=== PATIENT | male | born 1950 | race Caucasian/White ===

== ENCOUNTER 2019-10-11 12:26 | Emergency (ER) | payer MEDICARE ==
--- OUTSIDE RECORDS SUMMARY | 2019-10-11 12:33 | XMS REPORT | Continuity of Care Document ---
:1950 External Reference #:[id number] Author Name Jazlyn Sharp M.D. Address [address] [place] [address] Care Team Providers Name Role Phone Jazlyn Sharp M.D. 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 Onset: 07/21/2017 Gout Vincent Fuentes M.D. Onset: 07/21/2017 Essential hypertension Vincent Fuentes M.D. Onset: 07/21/2017 Peripheral vascular disease Jazlyn Sharp M.D. Onset: 04/19/2019 Impaired fasting glycaemia Jazlyn Sharp M.D. Onset: 05/08/2019 Social History Type Date Description Comments Sex Unknown Tobacco Use Start: 08/01/68 End: Former Cigarette Smoker 08/01/72 ETOH Use Occasionally consumes wine Tobacco Use Start: Unknown Nonsmoker Smoking Status Reviewed: 04/19/19 Nonsmoker Exercise Walks daily bike, and gym Type/Frequency Allergies, Adverse Reactions, Alerts Active Allergies Reaction Severity Comments Date NSAIDS severe swelling/angioedema 07/21/2017 Allopurinol rash 07/21/2017 Medications Active Medications SIG Qnty Indications Ordering Provider Date Uloric 1/4 tablet by 90tabs Jazlyn Sharp M.D. 80mg Tablets mouth every day Ramipril 1 by mouth every 90caps Jazlyn Sharp M.D. 10mg Capsules day Simvastatin 1/2 tablet by 90tabs Jazlyn Sharp M.D. 80mg mouth every day Tablets Immunizations CPT Code Status Date Vaccine Lot # [id number] Given 05/17/2019 High-Dose, Influenza Virus Vacccine-fluzone 65 and older [id number] Given 06/09/2018 High-Dose, Influenza Virus Vacccine-fluzone 65 and [id number] older Vital Signs Date Vital Result Comment 10/01/2019 9:08am BP Systolic 138 mmHg BP Diastolic 78 mmHg Heart Rate 66 /min Body Temperature 98.2 F Respiratory Rate 18 /min Height 71.5 inches 5'11.50" Weight 166.00 lb BMI (Body Mass Index) 22.8 kg/m2 04/19/2019 11:02am BP Systolic 124 mmHg BP Diastolic 76 mmHg Heart Rate 60 /min Body Temperature 97.9 F Respiratory Rate 16 /min Height 71.5 inches 5'11.50" Weight 172.00 lb BMI (Body Mass Index) 23.7 kg/m2 Results Test Acquired Date Facility Test Result H/L Range Note Lipid Profile 09/12/2019 [facility]) Cholesterol 156 mg/dL 120- 200 Triglycerides 83 mg/dL 30-200 HDL Cholesterol 47 mg/dL 30-70 LDL (Calculated) 92 CALC 0-129 VLDL Cholesterol 17 mg/dL 0-50 HDL Risk Factor 3.3 CALC 0.0-4.4 Comprehensive Metabolic 09/12/2019 [facility]) Sodium 138 mEq/L 134-149 Prof Potassium 4.4 mEq/L 3.6-5.5 Chloride 101 mEq/L 94-112 Carbon Dioxide 28 mEq/L 21-32 Glucose 107 mg/dL High 70-105 BUN 17 mg/dL 6-26 Creatinine 1.0 mg/dL 0.6-1.4 BUN/Creat Ratio 17.0 CALC 8.0-36.0 Calcium 10.4 mg/dL 8.9-10.6 Total Protein 7.2 g/dL 6.4-8.3 Albumin 4.6 g/dL 3.8-5.5 Globulin 2.6 g/dL 2.0-4.8 A/G Ratio 1.8 CALC 0.6-2.3 Alk. Phosphatase 59 U/L 22-95 Alt (SGPT) 19 U/L 7-35 Ast (Sgot) 19 U/L 5-34 Total Bilirubin 0.6 mg/dL 0.2-1.3 GFR Non- >60 ml/min/1.73m^ >=60 GFR >60 ml/min/1.73m^ >=60 Laboratory test 09/12/2019 [facility] Hemoglobin A1c 5.3 % % 4.1- 5.7 finding (607)- - ([facility]) Lipid Profile 05/04/2019 [facility](a) Cholesterol 189 mg/dL 120- 200 Triglycerides 122 mg/dL 30-200 HDL Cholesterol 46 mg/dL 30-70 LDL (Calculated) 119 CALC 0-129 VLDL Cholesterol 24 mg/dL 0-50 HDL Risk Factor 4.1 CALC 0.0-4.4 Comprehensive Metabolic 05/04/2019 [facility] [place]) Sodium 138 mEq/L 134-149 Prof Potassium 4.0 mEq/L 3.6-5.5 Chloride 107 mEq/L 94-112 Carbon Dioxide 27 mEq/L 21-32 Glucose 123 mg/dL High 70-105 BUN 16 mg/dL 6-26 Creatinine 1.0 mg/dL 0.6-1.4 BUN/Creat Ratio 16.0 CALC 8.0-36.0 Calcium 9.5 mg/dL 8.6-10.2 Total Protein 7.3 g/dL 6.4-8.3 Albumin 4.8 g/dL 3.8-5.5 Globulin 2.5 g/dL 2.0-4.8 A/G Ratio 1.9 CALC 0.6-2.3 Alk. Phosphatase 62 U/L 22-95 Alt (SGPT) 42 U/L High 7-35 Ast (Sgot) 27 U/L 5-34 Total Bilirubin 0.6 mg/dL 0.2-1.3 GFR Non- >60 ml/min/1.73m^ >=60 GFR >60 ml/min/1.73m^ >=60 Laboratory test finding 05/04/2019 [facility] [place]) TSH 2.73 mIU/L 0.50-6.00 Free T4 0.95 ng/dL 0.75-1.54 Uric Acid 5.9 mg/dL 2.5-9.2 CBC Electronic a 05/04/2019 [facility](a) WBC 5.8 x10^3/UL 4.0- 10.0 RBC 4.84 x10^6/UL 3.93-6.00 HGB 14.5 g/dL 12.0-17.0 HCT 44 % 35-50 MCV 89.9 fL 80.0-95.0 MCH 30.0 pg 25.6-32.2 MCHC 33.3 g/dL 32.2-36.0 RDW-CV 12.5 % 11.6-14.4 PLT 240 x10^3/UL 163-400 MPV 10.2 fL 9.4-12.4 Ronnie# 2.94 x10^3/UL 1.56-6.13 Lymph# 2.06 x10^3/UL 1.18-3.74 [place]# 0.63 x10^3/UL 0.24-0.82 Eos # 0.1 x10^3/UL 0.0-0.5 Baso # 0.08 x10^3/UL 0.01-0.08 Ronnie% 50.4 % 34.0-70.0 Lymph % 35.3 % 20.0-52.0 [place]% 10.8 % 5.0-12.0 Eos% 1.9 % 0.7-7.0 Baso% 1.4 % High 0.1-1.2 Procedures Date Code Description Status 08/01/2011 04260199 Colonoscopy Completed Medical Devices Description No Information Available Encounters Type Date Location Provider Dx Diagnosis Office Visit 04/19/2019 Main Office Jazlyn Sharp M.D. 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 examination without abnormal findings 10/01/2019 I10 Essential (primary) hypertension Jazlyn Sharp M.D. 10/01/2019 E78.5 Hyperlipidemia, unspecified Jazlyn Sharp M.D. 10/01/2019 R73.01 Impaired fasting glucose Jazlyn Sharp M.D. 10/01/2019 H91.93 Unspecified hearing loss, bilateral Jazlyn Sharp M.D. 09/12/2019 E78.2 Mixed hyperlipidemia Vincent Fuentes M.D. 09/12/2019 R73.09 Other abnormal glucose Vincent Fuentes M.D. 09/11/2019 E78.2 Mixed hyperlipidemia Vincent Fuentes M.D. 05/04/2019 E78.5 Hyperlipidemia, unspecified Jazlyn Sharp M.D. 05/04/2019 I10 Essential (primary) hypertension Jazlyn Sharp M.D. 05/04/2019 M10.9 Gout, unspecified Jazlyn Sharp M.D. 04/19/2019 I73.9 Peripheral vascular disease, unspecified Jazlyn Sharp M.D. 04/19/2019 M10.9 Gout, unspecified Jazlyn Sharp M.D. 04/19/2019 E78.5 Hyperlipidemia, unspecified Jazlyn Sharp M.D. 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 Plan of Treatment 10/01/2019 - Jazlyn Sharp M.D.Z00.00 Encounter for general adult medical examination without abnormal findingsComments:Encourage an active and healthy lifestyle with proper eating habits including fruits, vegetables, 6-8 glasses of water a day and monitoring portion size. Recommend 30 minutes of daily physical activityincluding walking, aerobic exercise, sports, yoga or dance. Any activity is better than no activity.Recommend routine eye and dental exams. Next physical is due in 1-2 years. Recommend annual influenza [id number] Essential (primary) hypertensionNew Labs:Comp Metabolic-[facility], Ordered : 10/01/19Lipid Panel-[facility], Ordered: 10/01/19Comments:The patient will continue to monitor blood pressure and let me know the blood pressure results if there are readings persistently above 140/90. Goal blood pressure is less than 130/80. Recommend low salt/cardiac diet such as the Mediterranean diet and routine exercise at least 30 minutes a day.E78.5 Hyperlipidemia, unspecifiedComments:Goal LDL is <100, possible <70 ,HDL >40, Triglycerides <200 peripheral vascular disease in left thigh; can't tolerate asa with allergyincrease simvastatin to 40mg very other dayR73.01 Impaired fasting glucoseNew Labs:Comp Metabolic-[facility], Ordered: Hemoglobin A1c ([facility]), Ordered: 10/01/19Comments:A fasting blood sugar level from 100 to 125 mg/dL is considered prediabetes. If it's 126 mg/dL or higher on two separate tests, you have diabetes. A1c> 6.5 is also diagnostic of diabetes.H91.93 Unspecified hearing loss, bilateralComments:refer for hearing evaluationAllComments:Medication Management Patient Understands medications he' s taking? Yes No Are there Barriersto Adherence? Yes No Has the patient been asked about herbal supplements and therapies, and OTC meds? Yes No Functional Status Description No Information Available Mental Status Description No Information Available Referrals Refer to Reason for Referral Status Appt Date [facility] hearing eval jw Sent [address] [place] [address] [phone]
[2019-10-11 13:29] VITALS: BP 141/94
[2019-10-11 13:56] LABS: Influenza A Molecular Negative (Negative); Influenza B Molecular Negative (Negative)
--- NOTE | 2019-10-11 15:57 | UC ---
Throat Pain/Nasal Cb HPI - HPI Summary HPI Summary: 69-year-old male comes in with a chief complaint of muscle aches. Patient left [place] on September 20, 2019. When he was there he had some respiratory tract infection symptoms which have overall improved. Continues with some muscle aches. No recent fevers. - History of Current Complaint Chief Complaint: UCGeneralIllness Stated Complaint: COUGH Time Seen by Provider: 10/11/19 12:57 Pain Intensity: 0 - Allergies/Home Medications Allergies/Adverse Reactions: Allergies Allergy/AdvReac Type Severity Reaction Status Date / Time allopurinol Allergy Rash Verified 10/11/19 13:30 NSAIDS (Non-Steroidal Allergy Swelling Verified 10/11/19 13:30 Anti-Inflamma Of Face,Lips,& Throat Home Medications: Home Medications Atorvastatin Calcium [Lipitor] 20 mg PO DAILY 10/11/19 [History Confirmed ] Febuxostat [Uloric] 20 mg PO DAILY 10/11/19 [History Confirmed 10/11/19] PMH/Surg Hx/FS Hx/Imm Hx Previously Healthy: Yes Endocrine History: Dyslipidemia - Surgical History Surgical History: Yes Surgery Procedure, Year, and Place: tumor removal. hernia repair. benign salivary tumor removal - Family History Known Family History: Positive: Non-Contributory - Social History Alcohol Use: Daily Substance Use Type: None Smoking Status (MU): Never Smoked Tobacco Review of Systems All Other Systems Reviewed And Are Negative: Yes Constitutional: Positive: Other - see hpi Skin: Positive: Negative Eyes: Positive: Negative ENT: Positive: Other - see hpi Respiratory: Positive: Negative Cardiovascular: Positive: Negative Gastrointestinal: Positive: Negative Motor: Positive: Negative Neurovascular: Positive: Negative Musculoskeletal: Positive: Myalgia Neurological/Mental Status: Positive: Negative Psychological: Positive: Negative Is Patient Immunocompromised?: No Physical Exam Triage Information Reviewed: Yes Appearance: Well-Appearing, No Pain Distress, Well-Nourished Vital Signs: Initial Vital Signs Temp 97.9 F 10/11/19 13:23 Pulse 82 10/11/19 13:23 Resp 18 10/11/19 13:23 BP 141/94 10/11/19 13:23 Pulse Ox 99 10/11/19 13:23 Vital Signs Reviewed: Yes Eye Exam: Normal Eyes: Positive: Conjunctiva Clear ENT: Positive: Pharynx normal, TMs normal Neck: Positive: Supple Respiratory: Positive: Lungs clear, Normal breath sounds, No respiratory distress Cardiovascular: Positive: RRR Musculoskeletal: Positive: Strength Intact, ROM Intact Neurological: Positive: Alert, Muscle Tone Normal Psychological: Positive: Age Appropriate Behavior Skin Exam: Normal Throat Pain/Nasal Course/Dx - Course Course Of Treatment: Strep and flu were negative. Patient was discussed with the health department. Patient is being checked for coronavirus. Will treat symptomatically and stay in quarantine and follow-up with health Department. Patient is to get reevaluated if worse or any other questions or concerns. - Differential Dx/Diagnosis Provider Diagnosis: Upper respiratory infection Discharge ED - Sign-Out/Discharge Documenting (check all that apply): Patient Departure All imaging exams completed and their final reports reviewed: No Studies - Discharge Plan Condition: Stable Disposition: HOME Patient Education Materials: Upper Respiratory Infection (ED) Referrals: Jazlyn Sharp MD [Primary Care Provider] - Additional Instructions: CONTINUE ISOLATION DISCUSSED WITH THE HEALTH DEPARTMENT. FOLLOW UP WITH YOUR DOCTOR IF NOT COMPLETELY IMPROVED. GO TO THE EMERGENCY DEPARTMENT IF WORSE OR ANY QUESTIONS OR CONCERNS. - Billing Disposition and Condition Condition: STABLE Disposition: Home
== END 2019-10-11 16:20 | disposition home or self-care (01) ==
LOC: UCEAST 12:26
DX: J06.9 Acute upper respiratory infection, unspecified (principal); E78.5 Hyperlipidemia, unspecified; Z79.899 Other long term (current) drug therapy; Z88.6 Allergy status to analgesic agent; Z88.8 Allergy status to other drugs, medicaments and biological substances
CPT/HCPCS: 87651; 99201; G0463